=== PATIENT | male | born 1960 | race Caucasian/White ===

== ENCOUNTER 2021-10-29 06:40 | Inpatient (IN) | payer OTHER ==
[~2021-10-29] VITALS: Ht 177.8 cm; Wt 79.4 kg
[2021-10-29 07:22] LABS: HEMATOCRIT 35.4 % (36.7-47.1); MEAN CORPUSCULAR HEMOGLOBIN 30.3 uug (23.8-33.4); MEAN CORPUSCULAR VOLUME 89.7 fL (73.0-96.2); PLATELET COUNT (AUTO) 357 K/uL (152-348)
[2021-10-29 07:28] LABS: POTASSIUM 3.3 mmol/L (3.5-5.1)
[2021-10-29] MEDS ORDERED: IV NORMAL SALINE 250 ML IV ONE (07:36)
[2021-10-29] MEDS ORDERED: IOHEXOL 350 100 ML INFUS..BTL ONE (07:36)
[2021-10-29] MEDS ORDERED: SWABABLE VALVE TRANSFER SET EA MC ONE (07:36)
--- NOTE | 2021-10-29 07:37 | NUR ---
ekg done per orders, handed to for review.
[2021-10-29 07:41] LABS: BILIRUBIN,TOTAL 0.6 mg/dL (0.2-1.0); TOTAL PROTEIN, SERUM 7.8 g/dL (6.4-8.2)
[2021-10-29] MEDS ORDERED: VANCOMYCIN IV 1,000 MG in IV DEXTROSE 5% 250 ML IV ONE (07:45)
[2021-10-29] MEDS ORDERED: CEFTRIAXONE 1 G in IV DEXTROSE 5% 50 ML IV ONE (07:45)
--- NOTE | 2021-10-29 07:52 | NUR ---
[employer] WAS NOTIFIED OF STUDY. ON HER WAY NOW. SHOULD BE HERE IN ABOUT 10 MINUTES. Jacqueline
[2021-10-29] MEDS ORDERED: CEFTRIAXONE /D5W 50ML IVPB **ER PYXIS IV ONE (08:02)
[2021-10-29] MEDS ORDERED: VANCOMYCIN IV 200 ML ONE ×2 (08:02→22:56)
--- NOTE | 2021-10-29 08:09 | NUR ---
PT SEEN AND EVALUATED BY DR REBOLLEDO.
--- NOTE | 2021-10-29 08:40 | NUR ---
IV ABX rocephin started, tolerated, no adverse reaction observed.
[2021-10-29] MEDS ORDERED: ACETAMINOPHEN ES 500 MG TABLET PO ONE (11:30)
[2021-10-29 12:10] LABS: *AMPHETAMINE, URINE POSITIVE (NEGATIVE); *CANNABINOID, URINE NEGATIVE (NEGATIVE); *COCCAINE, URINE NEGATIVE (NEGATIVE); *OPIATE, URINE POSITIVE (NEGATIVE); *PHENCYCLIDINE SCREEN,URINE NEGATIVE (NEGATIVE)
--- NOTE | 2021-10-29 12:24 | NUR ---
ER spoke to admitting Dr Garvin for Tele bed. No Tele beds available at this time per casting supervisor.
--- NOTE | 2021-10-29 19:15 | NUR ---
ASSUMED CARE OF PATIENT FROM DAY SHIFT NURSE. PATIENT AAOX4. EATING DINNER AT THIS TIME. IN NO APPARENT DISTRESS.
[2021-10-29 21:25] VITALS: BP 111/58
--- NOTE | 2021-10-29 21:25 | NUR ---
Admitted in tele floor under the care of Glenn Hooper, patient alert oriented, no sob no chest pain, telemonitor sinus rhtyhm 76, continent, with r leg cellulitis, with abx tolerate well, no adverse reaction noted, no complain of pain at this time. call light with reach, cont to monitor.
--- NOTE | 2021-10-29 21:30 | NUR ---
Pt. admitted to telemetry unit room 307, under care of Dr. Hooper. Belongs List completed.
[2021-10-29] MEDS ORDERED: ONDANSETRON 4 MG/2 ML VIAL IV PRN (22:00)
[2021-10-29] MEDS ORDERED: REMEDY ESSENTIAL ZINC PASTE 113 GM TP PRN (22:00)
[2021-10-29] MEDS ORDERED: VANCOMYCIN IV 1,500 MG in IV DEXTROSE 5% 500 ML IV ONE (22:30)
[2021-10-29] MEDS ORDERED: VANCOMYCIN HCL 500 MG VIAL ONE ×2 (22:58→22:59)
[2021-10-30] VITALS: BP 111/66
[2021-10-30 04:00] VITALS: BP 109/62
[2021-10-30 06:32] LABS: HEMATOCRIT 34.7 % (36.7-47.1); MEAN CORPUSCULAR HEMOGLOBIN 30.8 uug (23.8-33.4); MEAN CORPUSCULAR VOLUME 89.9 fL (73.0-96.2); PLATELET COUNT (AUTO) 365 K/uL (152-348)
[2021-10-30] MEDS: ACETAMINOPHEN 325 MG TABLET PO PRN ×2 (06:47→20:24)
[2021-10-30 06:50] LABS: CARBON DIOXIDE 29 mmol/L (21-32); CHLORIDE 96 mmol/L (98-107); CREATININE 0.6 mg/dL (0.6-1.3); GLUCOSE 102 mg/dL (74-106); MAGNESIUM 2.1 mg/dL (1.8-2.4); PHOSPHOROUS 4.2 mg/dL (2.5-4.9); POTASSIUM 3.5 mmol/L (3.5-5.1); UREA NITROGEN, BLOOD 12 mg/dL (7-18)
[2021-10-30] MEDS ORDERED: DILTIAZEM HCL CD 120 MG CAP.SR.24H PO SCH (09:00)
[2021-10-30] MEDS ORDERED: ASPIRIN EC 81 MG TABLET.DR PO SCH (09:00)
[2021-10-30] MEDS: VANCOMYCIN IV 1,500 MG in IV DEXTROSE 5% 500 ML IV SCH ×2 (10:21→20:24)
[2021-10-30 11:28] VITALS: BP 108/65
--- NOTE | 2021-10-30 12:08 | NUR ---
Social work consult was requested for a patient on [facility] for substance abuse resources. Patient is 61-year-old male admitted to the hospital for cellulitis. Upon social sciences professor assessment, patient is alert and oriented X4. Patient presents with congruent mood and full range affect. Patient presents with poor judgement and insight. SW explored patients support system. Patient states is primary contact center team lead is his friend, Anayeli Joshua ([phone]). Patient states that he lives in a one-story house at [address] [place] [address] with Anayeli ([phone]). SW explored patients financial status. Patient states that he is currently unemployed. Patient states he is not receiving social security or disability. Patient is currently driving. SW explored patients history of substance abuse. Patient states that he has a history of using speed. The toxicology screening reports positive for opiates and amphetamine. SW offered patient resources for substance abuse and the patient refused the resources. SW placed the resources in the patients chart. SW explored patients history of psychiatric diagnosis. Patient denies a history of psychiatric diagnosis. Patient denies suicidal or homicidal ideation. The discharge plan is for his friend, Anayeli Joshua ([phone]) to take him home at discharge.
[2021-10-30] MEDS ORDERED: ALBU8HFA4 (12:24)
--- NOTE | 2021-10-30 12:25 | NUR ---
IV ON HIS LEFT ANTECUBITAL CAME OUT PATIENT STATED DID NOT KNOW HOW IT HAPPENED MULTIPLE ATTEMPTS TO REINSERT FAILED DR ANNALISE ISRAEL NOTIFIED WITH ORDER FOR MIDLINE AND NOTED.
--- NOTE | 2021-10-30 13:08 | NUR ---
WOUND CARE CONSULT: PT PRESENTS WITH REDNESS AND SWELLING TO RT LOWER LEG, PRESENT ON ADMISSION. DR KAUFMAN NOTIFIED OF DPM CONSULT REQUEST. IN AGREEMENT WITH PLAN OF CARE.
[2021-10-30] MEDS: ENSURE ENLIVE (VAN) 240 ML LIQUID PO SCH (14:46)
[2021-10-30] MEDS: ARGININE/GLUTAMINE/CALCIUM BMB 1 EACH POWD.PACK PO SCH (14:47)
[2021-10-30 15:36] VITALS: BP 112/58
[2021-10-30] MEDS ORDERED: RIVAROXABAN 10 MG TABLET PO SCH (18:00)
--- NOTE | 2021-10-30 18:00 | NUR ---
CONTINUE ON IV ANTIBIOTICS ORDERED WITH NO ADVERSE OR ALLERGIC REACTIONS AT THIS TIME WILL CONTINUE TO OBSERVE EF IS 50-55 PERCENT
[2021-10-30 21:15] VITALS: BP 123/57
[2021-10-31 04:10] VITALS: BP 101/54
--- NOTE | 2021-10-31 05:25 | NUR ---
Patient alert oriented, stayed in bed, complain of pain of right leg, request a regular Tylenol for pain, right leg still swollen and red, cont abx, right upper arm midline intact, cont to monitor.
[2021-10-31] MEDS: VANCOMYCIN IV 1,500 MG in IV DEXTROSE 5% 500 ML IV SCH ×2 (05:49→16:11)
[2021-10-31 07:07] LABS: CREATININE 0.7 mg/dL (0.6-1.3); MAGNESIUM 2.3 mg/dL (1.8-2.4); PHOSPHOROUS 3.4 mg/dL (2.5-4.9)
[2021-10-31 08:38] LABS: THYROID STIMULATING HORMONE 1.651 mIU/mL (0.358-3.740)
[2021-10-31] MEDS: ENSURE ENLIVE (VAN) 240 ML LIQUID PO SCH (09:15)
[2021-10-31] MEDS: ARGININE/GLUTAMINE/CALCIUM BMB 1 EACH POWD.PACK PO SCH (09:15)
--- NOTE | 2021-10-31 11:22 | NUR ---
Social work consult was requested for a patient on [facility] for homeless resources. Patient is 61-year-old male admitted to the hospital for cellulitis. Upon manager social services assessment, patient is alert and oriented X4. Patient presents with congruent mood and full range affect. SW explored patients pre-admission living arrangement. Patient stated he was living with his friend, Anayeli ([phone]) in a one-story house at [address] [place] [address]. Patient stated he was unable to contact Anayeli ([phone]) and will discharge to his on [facility]. SW offered the patient homeless [place] [address] ([phone]). Patient refused the homeless resources and SW placed the resources in patients chart. Homeless waiver was signed and given to the patient and a copy was placed in the chart. Patient will be offered a TAP card if needed.
[2021-10-31 11:38] VITALS: BP 110/58
[2021-10-31 16:00] VITALS: BP 106/47
[2021-10-31] MEDS: ACETAMINOPHEN 325 MG TABLET PO PRN (16:13)
[2021-10-31 20:18] VITALS: BP 99/51
[2021-11-01] MEDS: ACETAMINOPHEN 325 MG TABLET PO PRN (00:31)
[2021-11-01] MEDS: VANCOMYCIN IV 1,500 MG in IV DEXTROSE 5% 500 ML IV SCH (02:10)
[2021-11-01 03:55] VITALS: BP 104/52
--- NOTE | 2021-11-01 05:02 | NUR ---
Patient asleep but arousable, no sob no chest pain, complain of pain of r leg cellulitis, given tylenol as reques, cont on abx for cellulitis with no adverse reaction noted, patient calm and cooperative with care, cont to monitor.
[2021-11-01 07:02] LABS: HEMATOCRIT 35.5 % (36.7-47.1); MEAN CORPUSCULAR HEMOGLOBIN 30.7 uug (23.8-33.4); MEAN CORPUSCULAR VOLUME 89.6 fL (73.0-96.2); PLATELET COUNT (AUTO) 466 K/uL (152-348)
[2021-11-01 07:27] LABS: CREATININE 0.7 mg/dL (0.6-1.3); POTASSIUM 4.2 mmol/L (3.5-5.1)
[2021-11-01] MEDS ORDERED: SULF1TAB48 PO (08:03)
[2021-11-01] MEDS ORDERED: HYDR-3972 PO (08:03)
[2021-11-01] MEDS ORDERED: CEPH500C2 PO (08:03)
[2021-11-01] MEDS: ARGININE/GLUTAMINE/CALCIUM BMB 1 EACH POWD.PACK PO SCH (09:39)
[2021-11-01] MEDS: ENSURE ENLIVE (VAN) 240 ML LIQUID PO SCH (09:39)
--- NOTE | 2021-11-01 10:09 | NUR ---
Pt is a/o x 4, cooperative with care. Plan is to discharge pt today, he stated he will be going to his friends house. Contacted supervisor buffing and pasting to arrange bus card for pt due to homeless status and no form of transportation. No complaints of pain at this time.
[2021-11-01 11:09] VITALS: BP 100/52
--- NOTE | 2021-11-01 13:03 | NUR ---
Pt is discharged. Pt will be going to stay with his friend, previously stated homeless. All personal belongings found and at hand. All discharge education and materials provided, medication direction and instructions provided. No signs of acute distress. Pt is a/o x 4, ambulatory. He was provided a tap card to take the bus due to no transportation. Pt was walked out to exit.
== END 2021-11-01 13:00 | disposition home or self-care (01) | DRG 383 ==
LOC: ER 06:51 → TELE3 20:43 → MEDSURG3 10-30 11:55
PROVIDERS: ADMIT Nurse Practitioner Acute Care; ATTEND Nurse Practitioner Acute Care
PROC: 05H533Z Insertion of Infusion Device into Right Subclavian Vein, Percutaneous Approach (ICD-10-PCS; principal; 2021-10-30)
PROC: B546ZZA Ultrasonography of Right Subclavian Vein, Guidance (ICD-10-PCS; principal; 2021-10-30)
DX: L03.115 Cellulitis of right lower limb (principal); E44.1 Mild protein-calorie malnutrition; E87.1 Hypo-osmolality and hyponatremia; E88.09 Other disorders of plasma-protein metabolism, not elsewhere classified; D75.839 Thrombocytosis, unspecified; E87.6 Hypokalemia; F17.210 Nicotine dependence, cigarettes, uncomplicated; J45.909 Unspecified asthma, uncomplicated; F19.10 Other psychoactive substance abuse, uncomplicated; M20.42 Other hammer toe(s) (acquired), left foot; M20.41 Other hammer toe(s) (acquired), right foot; D72.829 Elevated white blood cell count, unspecified; I49.8 Other specified cardiac arrhythmias; E86.1 Hypovolemia; Z71.6 Tobacco abuse counseling; Z20.822 Contact with and (suspected) exposure to COVID-19; Z68.25 Body mass index [BMI] 25.0-25.9, adult
CPT/HCPCS: 36415; 71045; 71275; 73630; 83735; 83935; 84100; 84300; 84443; 84484; 84550; 85025; 85610; 85651; 86140; 87040; 93005; 93307; A4663; A9150; G0378; J0696; J3370; J7040; J7060; Q9967